=== PATIENT | female | born 1940 | race Caucasian/White ===

== ENCOUNTER 2020-02-20 07:37 | Day surgery (SDC) | payer OTHER ==
[~2020-02-20] VITALS: Ht 160 cm; Wt 59.0 kg
[~2020-02-20 07:37] MED LIST: ISOSORBIDE DINI30 MG PO; LAMICTAL XR100 MG PO; PROAIR HFA8.5 GM INH; TOPROL XL50 MG PO; VITAMIN D21250 MC1 PO; ZANTAC 150MG T150 M1 PO
[2020-02-20 08:26] VITALS: BP 155/62
--- NOTE | 2020-02-21 06:21 | O ---
[facility] [place] [address] OPERATIVE REPORT Name: GO ACUÑA Room #: 150-3 [facility]#: [id number] Admission: 02/20/20 Attend Phys: Nestor Ndiaye MD Discharge: Date of : 36 Report #: [id number] THIS REPORT FOR: cc: Pablo Hills MD Mann, Kenneth R, MD White,Nestor Forman MD ~ CC: Pablo Ndiaye PREOPERATIVE DIAGNOSIS: Left upper lid lesion. POSTOPERATIVE DIAGNOSIS: Left upper lid lesion. PROCEDURE: Excision of lesion of left upper lid with frozen sections and myocutaneous flap repair of defect. SURGEON: Nestor Ndiaye MD. MOLDER FITTING: None. ANESTHESIA: MAC. COMPLICATIONS: None. INDICATIONS FOR SURGERY: This pleasant 80-year-old woman has a papillomatous destructive lesion in her medial left upper lid that has enlarged rapidly over the last few weeks. 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 The current lesion is planned to be excised with frozen sections and reconstruction of the ensuing defect. Informed consent was obtained to include but not limited to the potential risk for loss of vision, bleeding, infection, failure to improve the problem, and the potential need for further surgery or treatment. DESCRIPTION OF PROCEDURE: The patient was taken to the operating room where 2% Xylocaine with epinephrine mixed with equal parts 0.75% Marcaine with Wydase was administered transcutaneously and transconjunctivally to the right upper lid and the right medial canthus. The right lateral canthus was additionally anesthetized. The patient was subsequently prepped and draped in the usual sterile fashion. A fine tip skin marking pen was then utilized to outline the lesion including 1-2 mm of normal appearing tissue. The incisions were then made perpendicularly across the eyelid margin and drawn to a point at the arcus marginalis. The specimen was then oriented on a drawing for the waiting pathologist. She snap froze the specimen and found that the margins were clear. She was unclear as to what she thought the underlying pathology was. With the understanding that the lesion had been completely removed, attention was turned to reconstruction. A myocutaneous flap was then developed laterally [address] [address] OPERATIVE REPORT Name: GO ACUÑA Memo Room #: 150-3 [facility].#: [id number] Admission: 02/20/20 Attend Phys: Nestor Ndiaye MD Discharge: Date of : 38 Report #: [id number] to be rotated back into this medial defect. Hemostasis was then re-achieved. The flap was then advanced and secured with interrupted buried 5-0 and 6-0 Vicryl sutures deep. The medial most portion of the wound took out the superior canalicular system down to the level of the common canaliculus. The eyelid margin was reapproximated with interrupted 7-0 Vicryl sutures. The subcutaneous structures and the skin more superficially were closed with buried Vicryl sutures deep and then 6-0 plain gut sutures more superficially. The wounds were then cleaned and dressed with erythromycin ophthalmic ointment. The patient subsequently transported to the recovery area having tolerated the procedure well with no anesthetic or operative complications being noted. <ELECTRONICALLY SIGNED> By: Nestor Ndiaye MD 02/21/20 0621 1106 [id number] Nestor Ndiaye MD /nt
--- NOTE | 2020-02-21 17:07 | PATH ---
[facility] [place] [place] [address] PATHOLOGY RPT PROCEDURE Name: GO ACUÑA Room #: 150-3 [facility]#: [id number] Admission: 02/20/20 Date of : 36 Discharge: Report #: [id number] Path Case #: [id number] [facility] Accession Number: [id number] . 01 Material submitted: . lid margin - LEFT UPPER LID LESION. Modifiers: left . 02 Frozen section diagnosis: . FROZEN SECTION DIAGNOSIS (Yamilex Haque MD) . Skin, left upper lid lesion, excision: - Squamoproliferative lesion; negative for invasive carcinoma at margins on FS slides. . These findings are discussed with Dr. Nestor Ndiaye in OR6 at [facility] and a written report is placed in the patient's chart. . Frozen section performed at [facility], [address] [place] [address]. . . GROSS DESCRIPTION Specimen is received fresh from the OR labeled with the patient's name, and "left upper lid lesion", and consists of an inverted triangular specimen measuring 1 cm at the base and approximately 1.8 cm in length. There is an exophytic growth present at the inferior end of the specimen. The specimen is oriented as medial, superior, and lateral by Dr. Ndiaye. The medial margin including the deep margin is inked black, the superior half of the lateral margin is inked blue, and the inferior half of the lateral margin is inked green. At this point, the specimen is sectioned into four pieces and submitted in entirety for frozen section as FSA1, this is subsequently submitted for permanent sections as A1. (IUV:yvonne; 02/20/2020) IZ/S . 02 Diagnosis: Skin, left upper lid lesion, excision: - Squamous papilloma with mild hyperkeratosis. - Negative for invasive malignancy. - Side margins free; completely excised. (IUV:yvonne; 02/21/2020) S 02/21/2020 1321 Local . 02 Electronically signed: . Yamilex Haque MD, Pathologist NPI- [id number] [place] [address] PATHOLOGY RPT PROCEDURE Name: GO ACUÑA Room #: 150-3 [facility] M.Diana#: [id number] Admission: 02/20/20 Date of : 36 Discharge: Report #: [id number] Path Case #: [id number] . 01 Gross description: . PLEASE SEE GROSS DESCRIPTION UNDER FROZEN SECTION DIAGNOSIS. /QMS 02/20/2020 1230 Local . 02 Pathologist provided ICD-10: D23.121, L85.9 . 02 CPT . 232789, 168946 Specimen Comment: A courtesy copy of this report has been sent to [phone] Specimen Comment: Report sent to Performed at: [address], [place] [id number] MD Garry Justice MD Phone: [phone] Performed at: [address] [id number] MD Yamilex Haque MD Phone: [phone]
== END 2020-02-20 12:00 | disposition home or self-care (01) ==
LOC: OR 07:37 → TBA 07:43 → OR 08:31
DX: D23.121 Other benign neoplasm of skin of left upper eyelid, including canthus (principal); L57.0 Actinic keratosis; I10 Essential (primary) hypertension; J45.909 Unspecified asthma, uncomplicated; G43.909 Migraine, unspecified, not intractable, without status migrainosus; K21.9 Gastro-esophageal reflux disease without esophagitis; Z98.890 Other specified postprocedural states; Z79.899 Other long term (current) drug therapy; Z87.891 Personal history of nicotine dependence; Z85.3 Personal history of malignant neoplasm of breast; Z85.528 Personal history of other malignant neoplasm of kidney; Z85.038 Personal history of other malignant neoplasm of large intestine; Z90.49 Acquired absence of other specified parts of digestive tract; Z90.710 Acquired absence of both cervix and uterus; Z96.653 Presence of artificial knee joint, bilateral; Z98.41 Cataract extraction status, right eye; Z98.42 Cataract extraction status, left eye; Z96.1 Presence of intraocular lens; Z91.041 Radiographic dye allergy status; Z88.8 Allergy status to other drugs, medicaments and biological substances
CPT/HCPCS: 50010; 50101; 50386; 50398; 51636; 56528; 56531; 62110; 62850; 70005

== ENCOUNTER → 2020-10-19 | Outpatient (CLI) | payer OTHER | LOC: LAB 10:59 | PROVIDERS: ATTEND Student in an Organized Health Care Education/Training Program | DX: Z01.812 Encounter for preprocedural laboratory examination (principal); Z20.828 Contact with and (suspected) exposure to other viral communicable diseases ==

== ENCOUNTER 2020-10-22 08:05 | Day surgery (SDC) | payer OTHER ==
[~2020-10-22] VITALS: Ht 160 cm; Wt 58.1 kg
--- NOTE | ~2020-10-22 | O ---
[facility] [place] [address] OPERATIVE REPORT Name: GO ACUÑA Memo [id number] Admission: 10/22/20 Attend Phys: Nestor Ndiaye MD Discharge: 10/22/20 Date of : 38 Report #: [id number] THIS REPORT FOR: cc: FAM - Family physician unknown FAM - Family physician unknown Nestor Ndiaye MD ~ DATE OF SERVICE: 10/22/2020 PREOPERATIVE DIAGNOSIS: Lesion, left lower lid. POSTOPERATIVE DIAGNOSIS: Lesion, left lower lid. PROCEDURE: Excision of lesion of left lower lid with frozen section, control of margins and myocutaneous flap repair of defect. SURGEON: Nestor Ndiaye MD MID LEVEL DEVELOPER: None. ANESTHESIA: MAC. COMPLICATIONS: None. INDICATIONS FOR SURGERY: This pleasant 80-year-old woman has a rapidly progressive ____ lesion in her left medial lower lid that is destroying the architecture of the lid. The lesion appears to be papillomatous, but potentially squamous cell carcinoma. She presents today for excision of this lesion with frozen sections and collecting tissue to do viral studies to try to determine the underlying pathophysiologic mechanism of the lesions as this is her third such lesion. Informed consent was obtained to include but not limited to the potential risk for loss of vision, bleeding, infection, failure to improve the problem, and the potential need for further surgery or treatment. DESCRIPTION OF PROCEDURE: The patient was taken to the operating room where 2% Xylocaine with epinephrine mixed with equal parts of 0.75% Marcaine with Wydase was administered to the left lower lid, the left cheek and the left lateral canthus. The patient was subsequently prepped and draped in the usual sterile fashion. A fine tip skin marking pen was then utilized to outline the lesion including a small margin of normal appearing tissue. The incisions were then made with Raymond scissors and the lesion oriented on a drawing for the waiting pathologist. When the pathologist came in the room, we discussed how the viral studies would best be done. She suggested that she use that entire specimen for viral studies and I gave her an additional medial and lateral margin, which I did removing approximately 1-2 mm of additional tissue on each side. This tissue was then oriented for her on a drawing. She snap froze that tissue and found that the margins were clear. [address] [address] OPERATIVE REPORT Name: DOMENICOGO L Room #: DEP [facility] [place]frain#: [id number] Admission: 10/22/20 Attend Phys: Nestor Ndiaye MD Discharge: 10/22/20 Date of : 38 Report #: [id number] A myocutaneous flap was then developed laterally to be rotated medially to correct the defect. Hemostasis was then re-achieved. The flap was then advanced and secured with interrupted buried 5-0 Vicryl sutures deep. The eyelid margin was reapproximated with interrupted 7-0 Vicryl sutures. The subcutaneous structures were then closed with interrupted buried 7-0 Vicryl sutures deep and then 6-0 plain gut sutures more superficially. The wound was then cleaned and dressed with erythromycin ophthalmic ointment. The patient subsequently transported to the recovery area having tolerated the procedures well with no anesthetic or operative complications being noted. By: 1058 1201 Nestor Ndiaye MD /nt
[~2020-10-22 08:05] MED LIST changes: +BREO ELLIPTA 11 EACH INH
[2020-10-22 09:13] VITALS: BP 162/74
--- NOTE | 2020-10-23 16:06 | PATH ---
[facility] [address] [place] [address] PATHOLOGY RPT PROCEDURE Name: GO ACUÑA Room #: DEP [facility]#: [id number] Admission: 10/22/20 Date of : 36 Discharge: 10/22/20 Report #: [id number] Path Case #: [id number] [facility] Accession Number: [id number] . 01 Material submitted: . PART A: eyelid - LEFT LOWER EYELID LESION. Modifiers: left, lower PART B: eyelid - ADDITIONAL LATERAL AND MEDIAL MARGINS. Modifiers: left, medial . 01 Clinical history: . EXCISION LESION EYE LESION LEFT LOWER EYELID . 02 Frozen section diagnosis: . FROZEN SECTION DIAGNOSIS: (Yamilex Haque M.D.) . FSB1. Skin, additional lateral medial margins, biopsy x 2: - Reactive changes and chronic inflammation. . These findings are discussed with Dr. Nestor Ndiaye in OR6 and a written report is placed in the patient's chart. . Frozen section performed at [facility], [address] [place] [address]. . FROZEN SECTION GROSS DESCRIPTION: Specimen B is received fresh from the OR labeled with the patient's name, and "additional lateral and medial margins" (frozen) consists of two strips of skin measuring 0.6 and 0.7 cm. The true margin is marked with a surgical pen intraoperatively by Dr. Ndiaye, the lateral margin is inked black and the medial margin is inked blue at the true margin and the specimen is submitted for frozen section as FSB1. This is subsequently submitted for permanent sections as B1. (IUV/db; 10/22/2020) IZV/LBQ . 02 Diagnosis: A. Skin, left lower eyelid lesion, excision: - Squamous papilloma, markedly inflamed. - Negative for dysplasia or malignancy. - Mild sebaceous hyperplasia. - Medial, lateral and inferior margins showing unremarkable mucosa. . B. Skin, additional lateral and medial margins, biopsy: - Reactive changes along with mild chronic inflammation. (IUV:yvonne; 10/23/2020) S 10/23/[address] [address] PATHOLOGY RPT PROCEDURE Name: GO ACUÑA Room #: DEP [facility] Efrain#: [id number] Admission: 10/22/20 Date of : 36 Discharge: 10/22/20 Report #: [id number] Path Case #: [id number] . 02 Comment: A properly controlled p16 immunohistochemical stain is performed on block A1 and it shows patchy weak reactivity within the basal layers of the papilloma. HPV MIKE studies are ordered on block A1 at the request of Dr. Nestor Ndiaye (per the intraoperative discussion) and the results of these will be reported in an addendum to follow. (IUV:yvonne; 10/23/2020) . 02 Electronically signed: . Yamilex Haque MD, Pathologist NPI- [id number] . 01 Gross description: . A. Received fresh from the OR labeled with the patient's name, "left lower eyelid lesion (permanent) consists of an inverted triangular specimen measuring approximately 0.6 cm at the base and 0.7 cm from base to height. There is an exophytic lesion at the conjunctival surface. Grossly, the lateral, medial as well as the inferior margins are approximately 1 mm away from the exophytic lesion. The lateral side of the specimen is inked black. The inferior to medial side is inked blue and the superior end/side of the margin is inked orange. The specimen is sectioned into four pieces and submitted entirely for permanent sections as A1. (IUV/db; 10/22/2020) . . B. SEE FROZEN SECTION GROSS DESCRIPTION. /LBQ 10/23/2020 1447 Local . 02 Pathologist provided ICD-10: D23.122, L85.8, L08.9 . 02 CPT . 958949, 278932, 866522 Specimen Comment: A courtesy copy of this report has been sent to [phone] Specimen Comment: Report sent to Performed at: [address], [place] [id number] MD Manan Aggarwal MD Phone: [phone] Performed at: [address] [id number] MD Yamilex Haque MD Phone: [phone]
== END 2020-10-22 11:30 | disposition home or self-care (01) ==
LOC: TBA 08:05 → OR 08:05
PROVIDERS: ATTEND Ophthalmology
DX: D23.122 Other benign neoplasm of skin of left lower eyelid, including canthus (principal); L08.9 Local infection of the skin and subcutaneous tissue, unspecified; L85.8 Other specified epidermal thickening; J45.909 Unspecified asthma, uncomplicated; G43.909 Migraine, unspecified, not intractable, without status migrainosus; G47.30 Sleep apnea, unspecified; Z98.890 Other specified postprocedural states; Z79.899 Other long term (current) drug therapy; Z90.710 Acquired absence of both cervix and uterus; Z96.653 Presence of artificial knee joint, bilateral; Z98.41 Cataract extraction status, right eye; Z98.42 Cataract extraction status, left eye; Z90.49 Acquired absence of other specified parts of digestive tract; Z87.891 Personal history of nicotine dependence; Z85.3 Personal history of malignant neoplasm of breast; Z85.828 Personal history of other malignant neoplasm of skin; Z85.528 Personal history of other malignant neoplasm of kidney; Z85.038 Personal history of other malignant neoplasm of large intestine; Z88.8 Allergy status to other drugs, medicaments and biological substances; Z91.041 Radiographic dye allergy status
CPT/HCPCS: 50010; 50101; 50386; 50398; 51636; 56528; 56531; 62110; 62850; 70005